=== PATIENT | male | born 1970 | race American Indian/Alaskan Native ===

== ENCOUNTER 2016-11-16 16:51 | Emergency (ER) | payer OTHER ==
[2016-11-16 17:28] VITALS: BP 148/85; PULSE 71; TEMP 98.1; BMI 26.0
--- NOTE | 2016-11-16 17:53 | PDOC ---
History of Present Illness - General Chief Complaint: Rash Stated Complaint: RASH Time Seen by Provider: 11/16/16 17:29 History Source: Patient Exam Limitations: No Limitations - History of Present Illness Initial Comments: 11/16/16 17:46 46 yr male with history of psoriasis presents with 3 days itching to left palm and around his ring finger. Pt states he was pushing a cart and then felt something irritate his hand. no fever or chills. Severity: Yes: mild Location: reports: hands (left hand ) Past History - Past Medical History Allergies/Adverse Reactions: Allergies Allergy/AdvReac Type Severity Reaction Status Date / Time No Known Allergies Allergy Verified 11/16/16 16:55 Home Medications: Ambulatory Orders Betamethasone Dipropionate [Diprosone 0.05% Lotion -] 1 applic TP BID PRN #1 bottle 11/16/16 Diphenhydramine [Benadryl -] 50 mg PO TID PRN #15 capsule 11/16/16 Hypercholesterolemia: Yes Other medical history: PSORIASIS - Psycho/Social/Smoking Cessation Hx Anxiety: No Suicidal Ideation: No Smoking History: Never smoked Have you smoked in the past 12 months: No Information on smoking cessation initiated: No Substance Use Type: None *Physical Exam - Vital Signs Last Vital Signs Temp Pulse Resp BP Pulse Ox 98.1 F 71 18 148/85 100 11/16/16 16:55 11/16/16 16:55 11/16/16 16:55 11/16/16 16:55 11/16/16 16:55 - Physical Exam General Appearance: Yes: Nourished, Appropriately Dressed HEENT: positive: EOMI, SIDNEY Neck: positive: Supple Respiratory/Chest: positive: Lungs Clear, Normal Breath Sounds Cardiovascular: positive: Regular Rhythm, Regular Rate Musculoskeletal: positive: Normal Inspection Extremity: positive: Normal Capillary Refill, Normal Inspection, Normal Range of Motion Integumentary: positive: Normal Color, Dry, Warm, Other (left palm with scaly patchy 3cm area, left ring finger with excoriated scaly areas, no discharge ) Neurologic: positive: Fully Oriented, Alert, Normal Mood/Affect, Normal Response , Motor Strength 5/5 Medical Decision Making - Medical Decision Making 11/16/16 17:58 cc: chronic psoriasis hands, arms, neck presents with itching to left palm and fingers, ring and middle digits after pushing a cart 3 days ago. will prescribe antihistamines, topical steroids as directed wash hands in cool water avoid heat pt is to see his lead technical writer this week dc inst explained pt agrees with the plan of care. *DC/Admit/Observation/Transfer Diagnosis at time of Disposition: Contact dermatitis Qualifiers: Contact dermatitis type: unspecified Contact dermatitis trigger: unspecified trigger Qualified Code(s): L25.9 - Unspecified contact dermatitis, unspecified cause - Prescriptions Prescriptions: Diphenhydramine [Benadryl -] 50 mg PO TID PRN #15 capsule PRN Reason: puritus Betamethasone Dipropionate [Diprosone 0.05% Lotion -] 1 applic TP BID PRN #1 bottle PRN Reason: puritus - Referrals Referrals: Azalia Andino MD [Primary Care Provider] - Barb Hernandez MD [Staff Physician] - - Patient Instructions Additional Instructions: follow with your lead technical writer this week cool water, cool compresses can help with the itching apply the topical cortisone cream to affected areas, take the bendaryl as needed for itching DO NOT DRIVE, OPERATE MACHINERY OR DRINK ALCOHOL WHILE TAKING BENADRYL return if worse
== END 2016-11-16 17:56 | disposition home or self-care (01) ==
LOC: JERFT 16:51
DX: L40.8 Other psoriasis (principal); L25.9 Unspecified contact dermatitis, unspecified cause
CPT/HCPCS: 99281-25

== ENCOUNTER 2016-11-26 18:51 | Emergency (ER) | payer OTHER ==
[2016-11-26 18:55] VITALS: BP 125/81; PULSE 80; TEMP 98; BMI 26.0
[2016-11-26] MEDS ORDERED: TOBRAMYCIN 0.3% OPHTH SOLN 5 ML BOTTLE OU ONE (19:07)
[2016-11-26] MEDS ORDERED: TOBRAMYCIN 0.3% OPHTH SOLN 5 ML BOTTLE ONE (19:10)
--- NOTE | 2016-11-26 19:13 | PDOC ---
History of Present Illness - General Chief Complaint: Eye Problem Stated Complaint: Eye Problem Time Seen by Provider: 11/26/16 19:07 History Source: Patient Exam Limitations: No Limitations - History of Present Illness Initial Comments: 11/26/16 19:14 Complaints of bilateral draining and tenderness to both eyes. Started on Thursday with left eye and moved to right eye. States this morning woke up and had crusting shut. Drainage is whitish. No one else at home is ill, no fever or earache sore throat or cough. Has taken no medications for relief of same. Timing/Duration: unsure Severity: mild, moderate Associated Symptoms: reports: denies symptoms Past History - Travel Traveled outside of the country in the last 30 days: No Close contact w/someone who was outside of country & ill: No - Past Medical History Allergies/Adverse Reactions: Allergies Allergy/AdvReac Type Severity Reaction Status Date / Time No Known Allergies Allergy Verified 11/26/16 18:55 Home Medications: Ambulatory Orders Betamethasone Dipropionate [Diprosone 0.05% Lotion -] 1 applic TP BID PRN #1 bottle 11/16/16 Diphenhydramine [Benadryl -] 50 mg PO TID PRN #15 capsule 11/16/16 Hypercholesterolemia: Yes Other medical history: PSORIASIS - Psycho/Social/Smoking Cessation Hx Anxiety: No Suicidal Ideation: No Smoking History: Never smoked Have you smoked in the past 12 months: No Hx Alcohol Use: No Drug/Substance Use Hx: No Substance Use Type: None Review of Systems - Review of Systems Able to Perform ROS?: Yes Is the patient limited [place] proficient: Yes Constitutional: Yes: See HPI. No: Symptoms Reported, Fever, Loss of Appetite, Malaise HEENTM: Yes: Symptoms Reported, See HPI, Eye Pain, Tearing (with thick drainage causing, started with left eye and moved to right). No: Ear Pain, Nose Congestion, Throat Pain Integumentary: No: Symptoms Reported Neurological: Yes: Symptoms reported, See HPI, Headache All Other Systems: Reviewed and Negative *Physical Exam - Vital Signs Last Vital Signs Temp Pulse Resp BP Pulse Ox 98.0 F 80 20 125/81 99 11/26/16 18:53 11/26/16 18:53 11/26/16 18:53 11/26/16 18:53 11/26/16 18:53 - Physical Exam General Appearance: Yes: Nourished, Appropriately Dressed, Apparent Distress HEENT: positive: EOMI, SIDNEY (bilateral erythematous and tearing eyes with beefy red conjunctiva and some thickish whitish yellow drainage bilateral. Visual acuity is within normal limits, patient is intact, has tenderness without photophobia.), Normal ENT Inspection, TMs Normal, Pharynx Normal, Rhinorrhea Neck: positive: Tender, Supple. negative: Lymphadenopathy (R), Lymphadenopathy (L) Respiratory/Chest: positive: Lungs Clear, Normal Breath Sounds Cardiovascular: positive: Regular Rate Gastrointestinal/Abdominal: positive: Soft Musculoskeletal: positive: Normal Inspection Extremity: positive: Normal Inspection, Normal Range of Motion Integumentary: positive: Normal Color, Dry, Warm Neurologic: positive: regulatory law specialist II-XII NML intact, Fully Oriented, Alert, Normal Mood/ Affect, Normal Response, Motor Strength 5/5 *DC/Admit/Observation/Transfer Diagnosis at time of Disposition: Conjunctivitis Qualifiers: Conjunctivitis type: acute Acute conjunctivitis type: bacterial Laterality: bilateral Qualified Code(s): H10.33 - Unspecified acute conjunctivitis, bilateral - Discharge Dispostion Disposition: HOME Condition at time of disposition: Stable Admit: No - Referrals Referrals: Azalia Andino MD [Primary Care Provider] - - Patient Instructions Printed Discharge Instructions: DI for Conjunctivitis Additional Instructions: Rest, avoid rubbing eyes Wash hands frequently as this is very contagious Wash hands, use eye drops as directed Tobramycin 2 drops to each eye 4 times a day for 5 days, wash hands after use Do not share eyedrops with other person to may become infected as this will infect them Avoid contact with others until redness and discharge is gone from eyes. Followup with ophthalmology or private physician as needed - Post Discharge Activity Work/School Note: Back to Work
== END 2016-11-26 19:16 | disposition home or self-care (01) ==
LOC: JERFT 18:51
DX: H10.33 Unspecified acute conjunctivitis, bilateral (principal); E78.00 Pure hypercholesterolemia, unspecified
CPT/HCPCS: 99281-25